=== PATIENT | male | born 1995 | race African-American/Black ===

== ENCOUNTER 2019-03-15 14:59 | Emergency (ER) | payer SELFPAY ==
[~2019-03-15] VITALS: Ht 182.9 cm; Wt 120.2 kg
[2019-03-15 15:06] VITALS: BP 148/89
== END 2019-03-15 20:50 | disposition left against medical advice (07) ==
LOC: ER 14:59
DX: M79.605 Pain in left leg (principal); Z53.21 Procedure and treatment not carried out due to patient leaving prior to being seen by health care provider